=== PATIENT | male | born 1960 | race Caucasian/White ===

== ENCOUNTER → 2016-12-05 | Outpatient (CLI) | payer MEDICARE, OTHER ==
--- NOTE | 2016-12-05 15:28 | MR ---
EXAMINATION TYPE: MR shoulder RT wo con DATE OF EXAM: 12/05/2016 COMPARISON: Outside radiographs dated 11/22/2016. HISTORY: Right shoulder pain TECHNIQUE: Multiplanar, multisequence imaging of the right shoulder is performed without contrast. FINDINGS: Rotator Cuff: There is increased PD signal of the distal insertional fibers of both the supraspinatus and infraspinatus muscles with bursal surface fraying and no distinct tear. Reactive bone marrow dianne ma is seen at the insertion site of the infraspinatus on the greater tuberosity. Osseous cysts are se en of the humeral head, likely from enthesopathic changes. Additionally decreased T1 and T2 signal ar e seen at the insertion of the supraspinatus and infraspinatus relating to calcific tendinitis. Teres minor is unremarkable. High signal insinuating between the fascial plane of the infraspinatus and te res minor is thought to relate to a prominent vein. Acromioclavicular Joint: Moderate acromioclavicular arthropathy is demonstrated as capsular hypertrop hy, marginal osteophytes, and subchondral cysts. This minimally impresses upon the supraspinatus tend on without signal duration of the myotendinous junction of the supraspinatus. There is no downsloping of the acromion. Glenohumeral Joint: Marginal osteophyte from the humeral head projects inferiorly into the axillary r ecess. There is joint space loss and subchondral cysts of the glenoid. Labrum: The labrum appears to have generalized degeneration but is grossly intact given limitation of non-arthrogram study. Biceps Tendon: The long head of biceps is in normal location within bicipital groove. The intracapsul ar portion of the biceps tendon is attenuated near the insertion of the biceps anchor. Bone marrow signal: Reactive bone marrow edema in the greater tuberosity from enthesopathic changes a s described above. Otherwise bone marrow signal is unremarkable. IMPRESSION: 1. No evidence of rotator cuff tear. 2. 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 3. Attenuation of the intracapsular portion of the biceps tendon relating to tendinopathy. 4. Moderate acromioclavicular arthropathy with minimal impression upon the supraspinatus and no under lying myotendinous junction signal alteration. 5. Moderate glenohumeral arthropathy and glenoid degeneration.
== END | disposition home or self-care (01) ==
LOC: RADMRIMAIN 07:35
PROVIDERS: ATTEND Orthopaedic Surgery
DX: M19.011 Primary osteoarthritis, right shoulder (principal); M67.813 Other specified disorders of tendon, right shoulder